=== PATIENT | female | born 1990 | race Caucasian/White ===

== ENCOUNTER 2023-01-18 06:47 | Inpatient (IN) ==
--- NOTE | 2023-01-08 13:19 | History & Physical Report ---
Date of Service January 08, 2023 Assessment & Plan (1) Breech presentation: Plan: Plan for primary low transverse section, reviewed consent in office. Will plan for ultrasound prior to surgery. History of Present Illness Chief Complaint: Scheduled Primary Care Provider: Ant Kim 32yo with EDC 01/23/23. Planned scheduled term section for breech presentation. and Delivery Plans COVID POSITIVE 06/29/22 BREECH PRESENTATION C/S SCHEDULED FOR 01/18/[address] OLSON Obesity (BMI 40 and higher @ beginning of ) (BMI 42) *Growth US @ 32wks *Weekly NSTs @ 34wks *BMI 40 or greater offer detailed/level II anatomy at [facility] *Deliver by EDC. 2 Vessel Cord * Echo-scheduled [facility] 10/27/22-WNL *Serial Growth US starting @28wks *NSTs @36wks L kidney absent MFM consult. cfDNA low risk female noted. [facility] MFM/u/s 09/29/22 Pediatric nephrology zoom consult scheduled - Complete Growth US Q4wks. *Weekly NST's @ 36wks. GBS positive urine-treat in labor GDM Growth u/s q 4 weeks Allergies Allergy/AdvReac Type Severity Reaction Status Date / Time No Known Allergies Allergy Verified 01/08/23 09:44 Home Medications Medication Instructions Recorded Confirmed Type pantoprazole 20 mg tablet,delayed 20 mg PO DAILY 07/31/21 01/08/23 History release prenat.vits,benita,wyi-ihho-temld 1 tab PO DAILY 07/31/21 01/08/23 History acetone (urine) test (Ketone Urine #50 ea 12/11/22 01/08/23 Rx Test strips) blood sugar diagnostic (OneTouch #150 ea 12/11/22 01/08/23 Rx Verio test strips) blood-glucose meter (OneTouch #1 ea 12/11/22 01/08/23 Rx Verio Reflect Meter) lancets 33 gauge (OneTouch Delica #150 ea 12/11/22 01/08/23 Rx Lancets) Patient History Medical History History of chicken pox IBS (irritable bowel syndrome) Surgical History S/P endoscopy Family History Mother Breast cancer, Onset Age: 60 negative gene testing Hypertension Father Asthma Denies family history of Ovarian cancer Colorectal cancer Social History Smoking Status: Never smoker Do You Dip or Chew Tobacco: No; marital status: marital status details: Forrest Covert (33) [phone] Current Living Situation: Spouse Current Living Situation Comment: lives with spouse, dog, cat-automatic litter current occupational status: employed 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 No s/s chorio or abruption. Skin: no rashes, warm and dry Psychiatric: A+Ox3, euthymic affect Coding Level of Care Code None Diagnoses Breech presentation O32.1XX0
--- NOTE | 2023-01-11 13:43 | Anesthesiology Consultation ---
Date of Service January 11, 2023 Assessment & Plan (1) Encounter for pre-operative examination: Chart Review Chart Review: entry tech initiated -COVID screening: Per PAT nursing assessment on 01/11/23. No known COVID-19 positive contacts or current COVID-19 related symptoms. Travel screen negative. Patient is NOT vaccinated for Covid. At surgeon discretion if preop Covid testing being done. Patient seen by [facility] cardiology clinic 10/27/2022 = patient referred for assessment echocardiography as new patient due to single kidney and a two-vessel umbilical cord being identified on prior ultrasound studies. Current is otherwise uncomplicated. Patient's heart appears structurally normal. No further follow-up in cardiology clinic as necessary prior to delivery unless new concerns occur. Do not see any contraindication from a cardiac standpoint to her delivery at [facility] as she is currently planning. Pediatric cardiology team can be consulted anytime should there be any concern about baby's cardiovascular status. echocardiogram 10/27/2022 = echocardiogram performed at 27 weeks g estation. Structurally normal heart. No evidence of major congenital heart disease is detected. Normal biventricular systolic function. Two-vessel umbilical cord. History Surgery Operation Date: 01/18/23 09:10 Proposed Procedures p Section in LD (Delivery of Baby Through Abdominal Incision) - Heathre Bailey DO Height/Weight Height: 5 ft 6 in Weight: 125.645 kg Allergies Allergy/AdvReac Type Severity Reaction Status Date / Time No Known Allergies Allergy Verified 01/11/23 12:42 Medications Home Medications Medication Instructions Recorded Confirmed Last Taken pantoprazole 20 mg tablet,delayed 20 mg PO DAILY 07/31/21 01/11/23 Unknown release prenat.vits,benita,tqc-azvw-dsakv 1 tab PO DAILY 07/31/21 01/11/23 Unknown acetone (urine) test (Ketone Urine #50 ea 12/11/22 01/11/23 Unknown Test strips) blood sugar diagnostic (OneTouch #150 ea 12/11/22 01/11/23 Unknown Verio test strips) blood-glucose meter (OneTouch #1 ea 12/11/22 01/11/23 Unknown Verio Reflect Meter) lancets 33 gauge (OneTouch Delica #150 ea 12/11/22 01/11/23 Unknown Lancets) ferrous sulfate 325 mg (65 mg 325 mg PO DAILY 01/11/23 01/11/23 Unknown iron) tablet (Iron (ferrous sulfate)) Past Medical History Medical History GERD (gastroesophageal reflux disease) Gestational diabetes no insulin History of chicken pox childhood History of COVID-19 x2 > most recent May 2022 > resolved IBS (irritable bowel syndrome) Iron deficiency mild > related Past Family History Family History Mother Breast cancer, Onset Age: 60 negative gene testing Hypertension Father Asthma Denies family history of Ovarian cancer Colorectal cancer Past Surgical History Surgical History S/P endoscopy Social History Smoking Status: Never smoker Do You Dip or Chew Tobacco: No Hx Alcohol Use: No Hx Substance Use: No substance use type: does not use
[~2023-01-18 06:47] MED LIST: CITRIC ACID/SODIUM CITRATE 15 ML UDC PO SCH; LACTATED RINGER'S 1,000 ML IV SCH; ceFAZolin 3,000 MG in DEXTROSE 5% 50 ML IV SCH
[2023-01-18] MEDS ORDERED: MoRPHine SULFATE PF 1 MG/ML 10 ML AMP/VIAL ONE (07:23)
[2023-01-18] MEDS ORDERED: fentaNYL citrate PF 100 MCG/2 ML VIAL ONE (07:23)
[2023-01-18] MEDS ORDERED: SODIUM CHLORIDE 0.9% 250 ML IV PRN (07:52)
--- NOTE | 2023-01-18 07:57 | History & Physical Bridge Note ---
Date of Service January 18, 2023 History & Physical Bridge Note I have examined the patient, reviewed the History & Physical and in the interval since the performance of the History & Physical I have noted the following changes of clinical significance: no changes noted
[2023-01-18] MEDS ORDERED: NALOXONE HCL 0.08 MG in SYRINGE 1.8 ML IV PRN (08:52)
[2023-01-18] MEDS ORDERED: LACTATED RINGER'S 500 ML IV PRN (08:52)
[2023-01-18] MEDS ORDERED: KETOROLAC 30 MG/ML VIAL IV PRN (08:52)
[2023-01-18] MEDS ORDERED: NALOXONE HCL 0.4 MG/1 ML VIAL/CARP IV PRN (08:52)
[2023-01-18] MEDS ORDERED: ONDANSETRON INJ 2 MG/ML 2 ML VIAL IV PRN (08:52)
[2023-01-18] MEDS ORDERED: NALOXONE HCL 1 MG in SODIUM CHLORIDE 0.9% 1000ML 1,000 ML IV PRN (08:52)
[2023-01-18] MEDS ORDERED: diphenhydrAMINE 50 MG/ML VIAL IV PRN ×2 (08:52→12:11)
[2023-01-18] MEDS ORDERED: ePHEDrine sulfate 50 MG/ML AMP IV PRN (08:52)
[2023-01-18] MEDS ORDERED: NALBUPHINE HCL INJ 10 MG/ML AMP IV PRN (08:52)
[2023-01-18] MEDS ORDERED: MoRPHine SULFATE 2 MG/ML CARP IV PRN (08:52)
[2023-01-18] MEDS ORDERED: MoRPHine SULFATE PF 1 MG/ML 10 ML AMP/VIAL INT SPINAL ONE (08:52)
[2023-01-18] MEDS ORDERED: SODIUM CHLORIDE 0.9% 1000ML 1,000 ML IV SCH (09:00)
[2023-01-18] MEDS ORDERED: DC INTRASPINAL MORPHINE SCH (09:00)
[2023-01-18] MEDS ORDERED: NO NARCOTICS OR SEDATIVES SCH (09:00)
[2023-01-18] MEDS ORDERED: OXYTOCIN 10 UNITS/ML VIAL ONE (09:10)
[2023-01-18] MEDS ORDERED: ONDANSETRON INJ 2 MG/ML 2 ML VIAL ONE (09:10)
[2023-01-18 09:15] LABS: Basophils # (auto) 0.02 K/uL (0-0.2); Basophils % (auto) 0.3 %; Eosinophils # (auto) 0.04 K/uL (0-0.50); Eosinophils % (auto) 0.6 %; Hematocrit (blood only) 33.6 % (37.0-47.0); Immature Granulocytes # (auto) 0.02 K/uL (0.01-0.20); Immature Granulocytes % (auto) 0.3 %; Lymphocytes # (auto) 1.69 K/uL (1.2-3.4); Lymphocytes % (auto) 25.1 %; Mean Corpuscular Hemoglobin 26.9 pg (25.0-34.0); Mean Corpuscular Hgb Conc 32.7 g/dL (32.0-36.0); Mean Corpuscular Volume 82.2 fL (80.0-100.0); Monocytes # (auto) 0.53 K/uL (0.11-0.59); Monocytes % (auto) 7.9 %; Neutrophils # (auto) 4.43 K/uL (1.40-6.50); Neutrophils % (auto) 65.8 %; Platelet Count 142 K/uL (130-400); RDW Coefficient of Variation 15.9 % (11.5-14.5); RDW Standard Deviation 47.1 fL (36.4-46.3); Red Blood Count 4.09 M/uL (4.20-5.40); White Blood Count 6.73 K/ul (4.8-10.8)
[2023-01-18] MEDS ORDERED: ePHEDrine sulfate 50 MG/ML SYR ONE (09:55)
[2023-01-18] MEDS ORDERED: PHENYLEPHRINE 100MCG/ML 5ML SYR ONE (09:55)
[2023-01-18 10:15] LABS: Base Excess Cord Venous Blood -1.3 mEq/L (-7.7-1.9); Cord Venous Blood HCO3 24 mmol/L (18.4-26.8); Cord Venous Blood PCO2 43 mmHg (30.4-57.2); Cord Venous Blood PO2 33 mmHg (14.1-43.3); Cord Venous Blood pH 7.36 (7.20-7.44); O2 Saturation Cord Venous Bld 71.4 % (<68)
[2023-01-18 10:18] LABS: Base Excess Cord Arterial Bld -3.2 mEq/L (-9-1.8); CO2 Cord Arterial Blood 61 mmHg (39.1-73.5); HCO3 Cord Arterial Blood 26 mmol/L (19.7-28.5); Oxygen Sat Cord Arterial Blood < 60.0 % (<60); PO2 Cord Arterial Blood 15 mmHg (4.1-31.7); pH Cord Arterial Blood 7.23 (7.1-7.38)
--- NOTE | 2023-01-18 10:24 | Operative Report ---
PG Post Operative Report Pre & Post Diagnosis Operation Date: 01/18/23 09:10 Pre-Op Diagnosis: (1) Breech presentation Post-Op Diagnosis: (1) Breech presentation I identified the patient and participated in the time-out.: Yes Procedure Operation Date: 01/18/23 09:10 Actual Procedures Primary Low Transverse Section in LD of live female child at 0924 - Heather Bailey DO Surgeon Heather Bailey DO Melangeur Operator Rosalva Chamorro MD Estimated Blood Loss 500 Findings Consistent with Post-Op Diagnosis Normal appearing uterus, fallopian tubes, ovaries. Viable female , breech presentation, Apgars 8/9. Weight pending, please see nursery records. Specimens placenta, cord blood, cord gas Drains boothe clear yellow Anesthesia Type Spinal Complications none Disposition Accompanied Patient To Recovery: No Disposition: L&D Indications 32yo @ 39 09/08, persistent breech presentation. Description of Procedure The patient was seen in her labor and delivery room, risks benefits and alternatives to surgery were reviewed. Informed consent obtained. Questions were answered. She was taken to the operating room, spinal anesthesia was administered. She was then prepared and draped in the usual sterile fashion in the supine position with a leftward tilt. Timeout was confirmed. A Pfannenstiel skin incision was made with a scalpel, and carried through to the underlying layer of fascia. Fascia was nicked at midline, and this incision was extended bilaterally. The superior aspect of the fascial incision was grasped with Keiko clamps x2, elevated off the underlying rectus abdominis muscles, and dissected sharply and bluntly. In similar fashion, the inferior aspect of the fascial incision was dissected. The rectus abdominis muscles were , and the peritoneum was entered bluntly digitally. This was extended bilaterally. The bladder flap was taken down carefully using Metzenbaum scissors. Using a new scalpel, a low transverse uterine incision was created. Clear amniotic fluid noted. The infant was delivered from a susan breech presentation. The legs were delivered, followed by body and arms, followed by head. Nuchal cord x 1. Spontaneous cry on the field. The cord was doubly clamped and cut, and the infant was handed off to the waiting document clerk. A segment was retained for cord gases. Cord blood was obtained. The placenta was delivered spontaneously intact. The uterus was exteriorized, and cleared of all clots and debris. The hysterotomy incision was reapproximated using 0 Vicryl in a running locked stitch. A second layer of the same suture was used to imbricate the incision. Posterior uterus was evaluated and normal. The uterus was returned to the abdomen, and gutters were cleared of clots and debris. Small amount of oozing at bladder flap - this was made hemostatic with Bailey powder. Excellent hemostasis was observed. The fascial incision was reapproximated using 0 Vicryl in a running stitch. The subcutaneous tissue was irrigated, and reapproximated using 2-0 plain gut in a running stitch. The skin was reapproximated using 4-0 Vicryl in a running subcuticular stitch. PERNELL dressing applied. The patient tolerated the procedure well, and will be taken to the recovery area in stable and good condition. I attest to the content of the Intraoperative Record and any orders documented therein. Any exceptions are noted below. OB Procedure Charges 64682
[2023-01-18] MEDS ORDERED: LACTATED RINGER'S 1,000 ML IV SCH (12:11)
[2023-01-18] MEDS ORDERED: HYDROCORTISONE ACETATE 25 MG SUPP PR PRN (12:11)
[2023-01-18] MEDS ORDERED: MAGNESIUM HYDROXIDE SUSP 30 ML UDC PO PRN (12:11)
[2023-01-18] MEDS ORDERED: SENNA 8.6 MG TAB PO PRN (12:11)
[2023-01-18] MEDS ORDERED: DIPHTHERIA/TETANUS/PERTUSSIS Vaccine (Tdap, Age 7+yrs) 0.5mL SYR/VL IM ONE (12:11)
[2023-01-18] MEDS ORDERED: BENZOCAINE 20% AER SPR 82.5 GM CAN EXT PRN (12:11)
[2023-01-18] MEDS: OXYTOCIN 30 UNITS in LACTATED RINGER'S 1,000 ML IV SCH ×2 (12:40→20:51)
--- NOTE | 2023-01-18 14:28 | Anesthesiology Progress Note ---
Date of Service January 18, 2023 Anesthesia Post Procedure Vital Signs Vital Signs: Temp Pulse Resp BP Pulse Ox O2 Del Method 01/18/23 11:50 36.6 C 90 18 98 01/18/23 12:20 36.6 C 16 01/18/23 12:16 36.6 C 93 H 18 98 01/18/23 11:20 36.5 C 68 18 97 01/18/23 11:00 36.5 C 80 18 98 01/18/23 10:50 36.5 C 80 18 98 01/18/23 10:40 36.4 C L 16 01/18/23 10:30 36.5 C 16 01/18/23 11:20 36.5 C 69 18 99 01/18/23 11:10 36.5 C 85 16 116/59 L 01/18/23 10:40 36.4 C L 80 16 98 01/18/23 10:20 36.5 C 74 18 100 01/18/23 10:20 36.5 C 18 01/18/23 07:08 36.8 C 18 Room Air 01/18/23 13:18 90 98 01/18/23 13:13 104 H 98 01/18/23 13:08 83 98 01/18/23 13:03 83 97 01/18/23 12:58 81 98 01/18/23 12:53 95 H 98 01/18/23 12:48 94 H 98 01/18/23 12:43 78 98 01/18/23 12:38 95 H 96 01/18/23 12:37 106 H 93 01/18/23 12:33 112 H 97 01/18/23 12:32 112 H 93 01/18/23 12:28 93 H 98 01/18/23 12:23 90 97 01/18/23 12:21 93 H 98/51 L 01/18/23 12:18 83 97 01/18/23 12:13 93 H 98 01/18/23 12:08 85 98 01/18/23 12:03 97 01/18/23 12:03 90 01/18/23 12:03 83 90 01/18/23 11:58 76 99 01/18/23 11:53 89 98 01/18/23 11:50 86 130/70 01/18/23 11:48 86 98 01/18/23 11:43 71 99 01/18/23 11:38 68 97 01/18/23 11:33 70 98 01/18/23 11:30 70 109/57 L 01/18/23 11:28 69 99 01/18/23 11:23 85 98 01/18/23 11:20 75 121/61 01/18/23 11:18 73 98 01/18/23 11:13 78 98 01/18/23 11:10 85 116/59 L 01/18/23 11:08 72 99 01/18/23 11:03 80 98 01/18/23 11:00 75 117/58 L 01/18/23 10:58 72 99 01/18/23 10:53 74 100 01/18/23 10:50 115/58 L 01/18/23 10:48 80 98 01/18/23 10:43 74 99 01/18/23 10:40 82 124/58 L 01/18/23 10:38 77 99 01/18/23 10:34 67 115/56 L 01/18/23 10:33 77 99 01/18/23 10:28 70 99 01/18/23 10:23 68 98 01/18/23 10:18 74 118/61 98 01/18/23 06:57 88 137/88 Pain Intensity Abdomen: Pain Intensity: 2 Transfer of Care Handoff Completed per policy Notes Mental Status: alert / awake / arousable and participated in evaluation Patient Amnestic to Procedure: Yes Nausea / Vomiting: adequately controlled Pain: adequately controlled Airway Patency, RR, SpO2: stable & adequate BP & HR: stable & adequate Hydration State: stable & adequate Neuraxial Anesthesia: was administered and sensory block is resolving Anesthetic Complications: no major complications apparent and Pt Satisfied with anesthetic care
[2023-01-18] MEDS: SIMETHICONE 80 MG CHEW PO SCH ×3 (16:31→20:03)
[2023-01-18] MEDS: DOCUSATE SODIUM 100 MG CAP PO SCH (20:03)
[2023-01-19] MEDS ORDERED: KETOROLAC 30 MG/ML VIAL IV PRN (02:53)
[2023-01-19] MEDS ORDERED: PROMETHAZINE HCL 25 MG in SODIUM CHLORIDE 0.9% 50 ML IV PRN (02:53)
[2023-01-19] MEDS ORDERED: oxyCODONE/ACETAMINOPHEN 5mg/325mg TAB PO PRN (02:53)
[2023-01-19] MEDS ORDERED: diphenhydrAMINE Capsule 25 MG CAP PO PRN (02:53)
[2023-01-19] MEDS ORDERED: ONDANSETRON INJ 2 MG/ML 2 ML VIAL IV PRN (02:53)
[2023-01-19] MEDS ORDERED: CITRIC ACID/SODIUM CITRATE 15 ML UDC PO SCH (06:00)
--- NOTE | 2023-01-19 06:05 | Obstetrical Progress Note ---
Date of Service January 19, 2023 Assessment & Plan (1) care following delivery: (2) Obesity in , antepartum: (3) Group beta Strep positive: (4) Gestational diabetes: Plan - Overall, feeling well and eating well today, continue to advance diet as tolerated - Infant breast feeding going well without concern - Anna removed this AM, no independent voids at this time, passing gas appropriately - Ambulating well in room - Pain controlled at 5/10, ibuprofen/Percocet available - Hgb 11.0 on 01/18 - Vitals stable and wnl - Routine PP care progressing well - Anticipate discharge @ 48-72 hours PP - Recommending f/u outpatient in 6 weeks Admission and Anticipated Discharge Date Admission Date: January 18, 2023 Supervising Physician Co-Signing Physician Notes Resident Physician Supervision Note: I interviewed and examined the patient. Discussed with Dr. Coates and agree with findings and plan as documented in the note. Any exceptions or clarifications are listed here: [ ] Documented By: Rody Chamorro MD, FACOG Subjective Patient is a 32F who is POD #1 following delivery at 39 2/7 for breech presentation. She reports feeling well overall this morning. - Ambulation - well to bathroom - Voiding/Anna - no independent voids, no dysuria or pressure, Anna removed this AM - Gas/Stool - passing gas, no bowel movement - Diet - light, appropriate appetite, no nausea or emesis - Lochia - diminishing, light to moderate amount - Feeding Type - breast feeding w/o concern - Pain Level - 5/10, pain control available Review of Systems - Denies fever, chills, sweats - Denies shortness of breath, difficulty breathing, chest pain, palpitations, chest pressure. - Denies breast pain. - Denies dysuria. - Denies headache or changes in vision. Physical Exam Physical Exam: General: Alert, oriented. No acute distress. Cardiac: RRR, normal S1/S2, no murmurs/rubs/gallops. Respiratory: Non-labored, CTAB, no wheezes/rales/rhonchi. Symmetric chest rise. Abdomen: Soft, nontender, nondistended. Bowel sounds present. PERNELL dressing intact, no surrounding erythema. Uterus: Uterine fundus firm, palpable 2 cm below umbilicus. Lower Extremities: Trace lower extremity edema. No deep calf pain. Rocio's negative bilaterally. Results & Data Vital Signs (Past 12 Hours) Vital Signs Temp Pulse Resp BP Pulse Ox O2 Del Method 01/19/23 02:15 18 93 01/19/23 01:20 18 92 01/19/23 00:33 18 93 01/19/23 03:00 36.6 C 77 18 120/77 92 Room Air 01/18/23 23:30 18 95 01/18/23 22:39 18 94 01/18/23 22:39 36.9 C 85 18 118/80 94 Room Air 01/18/23 21:30 18 94 01/18/23 19:59 18 97 01/18/23 19:15 18 95 01/18/23 19:59 36.8 C 83 18 138/84 97 Room Air 01/18/23 18:39 19 97 Resident Activity Tracking Resident Involvement: Resident Care Provided Care Provided: OB Delivery
[2023-01-19 06:52] LABS: Basophils # (auto) 0.02 K/uL (0-0.2); Basophils % (auto) 0.3 %; Eosinophils # (auto) 0.03 K/uL (0-0.50); Eosinophils % (auto) 0.4 %; Hematocrit (blood only) 29.3 % (37.0-47.0); Hemoglobin 9.6 g/dl (12.0-16.0); Immature Granulocytes # (auto) 0.03 K/uL (0.01-0.20); Immature Granulocytes % (auto) 0.4 %; Lymphocytes # (auto) 1.12 K/uL (1.2-3.4); Lymphocytes % (auto) 14.5 %; Mean Corpuscular Hemoglobin 26.7 pg (25.0-34.0); Mean Corpuscular Hgb Conc 32.8 g/dL (32.0-36.0); Mean Corpuscular Volume 81.6 fL (80.0-100.0); Monocytes % (auto) 6.5 %; Neutrophils # (auto) 6.02 K/uL (1.40-6.50); Neutrophils % (auto) 77.9 %; Platelet Count 120 K/uL (130-400); Red Blood Count 3.59 M/uL (4.20-5.40); White Blood Count 7.72 K/ul (4.8-10.8)
[2023-01-19] MEDS: PRENATAL VITAMIN 1 TAB PO SCH (07:42)
[2023-01-19] MEDS: FERROUS SULFATE 325 MG TAB PO SCH (07:42)
[2023-01-19] MEDS: IBUPROFEN 600 MG TAB PO PRN ×4 (07:42→22:33)
[2023-01-19] MEDS: SIMETHICONE 80 MG CHEW PO SCH ×4 (07:42→20:23)
[2023-01-19] MEDS: DOCUSATE SODIUM 100 MG CAP PO SCH ×2 (07:42→20:22)
[2023-01-19] MEDS ORDERED: PANTOprazole 40 MG TAB PO SCH (09:00)
[2023-01-19] MEDS: PANTOprazole 40 MG TAB PO SCH (09:21)
[2023-01-19] MEDS ORDERED: bisacodyL 5 MG TABEC PO SCH (20:00)
[2023-01-20 05:35] LABS: Hematocrit (blood only) 27.8 % (37.0-47.0); Hemoglobin 8.9 g/dl (12.0-16.0)
--- NOTE | 2023-01-20 06:22 | Obstetrical Progress Note ---
Date of Service January 20, 2023 Assessment & Plan (1) care following delivery: (2) Obesity in , antepartum: (3) Group beta Strep positive: (4) Gestational diabetes: Plan - Overall, feeling well and eating well today - breast feeding going well without concern - Independent voids, passing gas appropriately - Ambulating well in room - Pain controlled with Percocet - Hgb 8.9 on 01/20, asymptomatic - Vitals stable and wnl - Routine PP care progressing well - Anticipate discharge @ 48-72 hours PP - Recommending f/u outpatient in 6 weeks Admission and Anticipated Discharge Date Admission Date: January 18, 2023 Supervising Physician Co-Signing Physician Notes Resident Physician Supervision Note: I interviewed and examined the patient. Discussed with Dr. Coates and agree with findings and plan as documented in the note. Any exceptions or clarifications are listed here: POD2 s/p pLTCS, doing well. VSS, exam benign and wnl, pernell dressing c/d/i. Continue routine pp care, considering if desires dc home later, will need 1 wk pernell removal Documented By: Sue Snider MD Subjective Patient is a 32F who is POD #2 following delivery at 39 2/7 for breech presentation. She reports feeling well overall this morning. - Ambulation - well within room - Voiding/Anna - independent voids, no dysuria or pressure - Gas/Stool - passing gas, no bowel movement - Diet - regular, no nausea or emesis - Lochia - diminishing, light to moderate amount - Infant Feeding Type - breast feeding w/o concern - Pain Level - 3/10, receiving Percocet Review of Systems - Denies fever, chills, sweats - Denies shortness of breath, difficulty breathing, chest pain, palpitations, chest pressure. - Denies breast pain. - Denies dysuria. - Denies headache or changes in vision. Physical Exam Physical Exam: General: Alert, oriented. No acute distress. Cardiac: RRR, normal S1/S2, no murmurs/rubs/gallops. Respiratory: Non-labored, CTAB, no wheezes/rales/rhonchi. Symmetric chest rise. Abdomen: Soft, nontender, nondistended. Bowel sounds present. PERNELL dressing intact, no surrounding erythema. Uterus: Uterine fundus firm, palpable 2 cm below umbilicus. Lower Extremities: Trace lower extremity edema. No deep calf pain. Rocio's negative bilaterally. Results & Data Vital Signs (Past 12 Hours) Vital Signs Temp Pulse Resp BP O2 Del Method 01/20/23 03:31 36.6 C 85 18 128/86 Room Air 01/19/23 19:48 36.7 C 82 18 113/73 Room Air Resident Activity Tracking Resident Involvement: Resident Care Provided Care Provided: OB Delivery
[2023-01-20] MEDS: SIMETHICONE 80 MG CHEW PO SCH ×2 (08:28→12:59)
[2023-01-20] MEDS: FERROUS SULFATE 325 MG TAB PO SCH (08:29)
[2023-01-20] MEDS: DOCUSATE SODIUM 100 MG CAP PO SCH (08:29)
[2023-01-20] MEDS: PRENATAL VITAMIN 1 TAB PO SCH (08:29)
[2023-01-20] MEDS: IBUPROFEN 600 MG TAB PO PRN (08:29)
[2023-01-20] MEDS: PANTOprazole 40 MG TAB PO SCH (09:00)
[2023-01-20] MEDS ORDERED: bisacodyL 10 MG SUPP PR PRN (10:16)
--- NOTE | 2023-01-22 15:21 | Discharge Summary ---
Date of Service January 22, 2023 Admission HPI Per Admitting Provider 32yo with EDC 01/23/23. Planned scheduled term section for breech presentation. and Delivery Plans COVID POSITIVE 06/29/22 BREECH PRESENTATION C/S SCHEDULED FOR 01/18/[address] BAILEY Obesity (BMI 40 and higher @ beginning of ) (BMI 42) *Growth US @ 32wks *Weekly NSTs @ 34wks *BMI 40 or greater offer detailed/level II anatomy at [facility] *Deliver by EDC. 2 Vessel Cord * Echo-scheduled [facility] [facility] 10/27/22-WNL *Serial Growth US starting @28wks *NSTs @36wks L kidney absent [facility] consult. cfDNA low risk female noted. [facility]/u/s 09/29/22 Pediatric nephrology zoom consult scheduled - Complete Growth US Q4wks. *Weekly NST's @ 36wks. GBS positive urine-treat in labor GDM Growth u/s q 4 weeks Discharge Data Consultations 01/18/23 07:43 Consult Anesthesiology Stat Procedures Performed Operation Date: 01/18/23 09:10 Actual Procedures p Section in LD of live famele child at 0924 - Heather Bailey DO Hospital Course (1) Breech presentation: Delivery by . Routine postop course. DC home POD2. Coding Level of Care Code None Diagnoses Breech presentation O32.1XX0
== END 2023-01-20 16:40 | disposition home or self-care (01) | DRG 788 ==
LOC: 4S1 06:47 → EDSTATUS 09:10 → 4E2 13:30